=== PATIENT | female | born 1935 ===

== ENCOUNTER 2017-02-25 10:05 | Emergency (ER) | payer OTHER ==
[~2017-02-25] VITALS: Ht 167.6 cm; Wt 66.7 kg
[2017-02-25] MEDS ORDERED: NORVASC2.5 M1 (10:24)
[2017-02-25] MEDS ORDERED: METFORMIN HCL500 MG (10:24)
[2017-02-25] MEDS ORDERED: NEURONTIN600 MG (10:24)
[2017-02-25] MEDS ORDERED: ASPIR 8181 MG (10:25)
[2017-02-25] MEDS ORDERED: CRESTOR20 MG (10:25)
[2017-02-25] MEDS ORDERED: ZANTAC150 M3 (10:25)
[2017-02-25] MEDS ORDERED: FOSAMAX70 MG (10:26)
== END 2017-02-25 11:44 | disposition home or self-care (01) ==
LOC: ER 10:05
DX: M54.5 Low back pain (principal); M17.12 Unilateral primary osteoarthritis, left knee